=== PATIENT | male | born 1960 | race Caucasian/White ===

== ENCOUNTER 2022-03-12 10:04 | Emergency (ER) | payer BC, SELFPAY ==
[2022-03-12] VITALS (8 sets, daily range): BP systolic 124–133; BP diastolic 81–87; PULSE 65–81; RESP 9–18; O2SAT 95–99
--- NOTE | ~2022-03-12 | XR_ITS ---
EXAMINATION: XR chest 1V portable DATE: 03/12/2022 10:38 INDICATION: Centralized chest pain TECHNIQUE: frontal view of the chest was obtained. COMPARISON: None FINDINGS: The lungs are clear with no focal airspace opacities, pulmonary edema, pleural effusion or pneumothor ax. The cardiomediastinal silhouette is normal. Visualized bones and soft tissues are unremarkable. IMPRESSION: 1. No acute cardiopulmonary disease. Reviewed, dictated and finalized at location A.
--- NOTE | 2022-03-12 10:17 | ECG_ITS ---
Measurements Intervals Counselor Rate: 73 P: 36 LA: 135 QRS: 10 QRSD: 101 T: 34 QT: 352 QTc: 389 Interpretive Statements SINUS RHYTHM INCOMPLETE RIGHT BUNDLE BRANCH BLOCK BORDERLINE ECG Electronically Signed On 03-14-2022 10:41:17 CDT by Tushar Blanchard D.O.
--- NOTE | 2022-03-12 10:33 | ECG_ITS ---
Measurements Intervals [place] Rate: 60 P: 35 IN: 134 QRS: 1 QRSD: 99 T: 30 QT: 375 QTc: 375 Interpretive Statements SINUS RHYTHM BORDERLINE T WAVE ABNORMALITY- INFERIOR LEADS BORDERLINE ECG Electronically Signed On 03-12-2022 15:34:19 CDT by Tushar Blanchard D.O.
[2022-03-12] MEDS: ASPIRIN 81 MG CHEWABLE TABLET 324 MG PO (10:36)
[2022-03-12 10:43] LABS: Basophils Absolute Auto 0.1 K/mm3 (0.0-0.1); Eosinophils Absolute Auto 0.2 K/mm3 (0-0.3); Eosinophils Percent Auto 2.9 % (0-4.4); Hematocrit 44.3 % (42.0-52.0); Hemoglobin 14.6 g/dL (14.0-18.0); Immature Granulocyte Absolute 0.04 K/mm3 (0.00-0.031); Immature Granulocyte Percent A 0.5 % (0-0.5); Lymphocytes Absolute Auto 1.76 K/mm3 (0.9-3.2); Lymphocytes Percent Auto 21.8 % (18.3-44.2); Monocytes Absolute Auto 0.7 K/mm3 (0.1-0.6); Monocytes Percent Auto 8.2 % (2.6-8.5); Neutrophils Absolute Auto 5.3 K/mm3 (1.3-6.7); Neutrophils Percent Auto 65.6 % (45.5-73.1); Platelet Count Result 263 k/mm3 (150-375); Red Blood Count 4.87 M/mm3 (4.6-6.20); Red Cell Distribution Width 13.1 % (11.5-14.5); White Blood Count 8.1 K/mm3 (4.5-10.0)
--- NOTE | 2022-03-12 10:51 | ED.CHESTPAIN ---
HPI - Chest Pain General Chief Complaint: Chest Pain Stated Complaint: chest tightness Time Seen by Provider: 03/12/22 10:24 History of Present Illness HPI narrative: 61-year-old male presents emergency room accompanied by his . He was in his house [facility] when all of a sudden he developed this discomfort in the midportion of his chest. He states he can move from the central portion a little bit over towards the left side. He states he got very scared when this happened. He never had any history of any cardiac abnormalities. He had no radiation of the pain. He had no associated nausea, vomiting, shortness of breath, diaphoresis. He has been a very healthy geraldo and is never having had exertional chest pain or shortness of breath. He is a non-smoker. Related Data Home Medications Medication Instructions Recorded Confirmed No Home Medications 03/12/22 03/12/22 Allergies Allergy/AdvReac Type Severity Reaction Status Date / Time No Known Allergies Allergy Verified 03/12/22 10:22 Review of Systems Review of Systems: CONSTITUTIONAL: Denies fever, chills, or sweats. EYES: Denies visual changes, redness, or discharge. ENT: Denies rhinorrhea, congestion, sore throat, or otalgia. CARDIOVASCULAR: Chest pain as noted in HPI but no palpitations or edema. RESPIRATORY: Denies cough or dyspnea. GASTROINTESTINAL: Denies abdominal pain, nausea, vomiting, or diarrhea. GENITOURINARY: Denies dysuria or hematuria. SKIN: Denies rash or itching. MUSCULOSKELETAL: Denies back pain, joint pain, or myalgia. NEUROLOGIC: Denies headache, numbness, or weakness. PSYCHIATRIC: Denies anxiety or depression. ON LICENSE OF [facility] Past Medical History Medical History No active medical problems Social History Social History Smoking status: Never smoker Exam Narrative: APPEARANCE: Well appearing, no pain or distress, well-nourished. Head normocephalic and atraumatic. EYES: PERRLA/EOMI, conjunctivae very clear. NOSE: Normal with no drainage EARS:TMS clear Donte Linares, with good light reflex. THROAT: Pharynx clear, no exudate. NECK: Supple. No adenopathy, no masses. RESPIRATORY: Airway patent, respirations nonlabored. Clear to auscultation bilaterally, no rales, rhonchi, wheezing. CARDIOVASCULAR: Regular rate and rhythm without murmurs, rubs, or gallops. ABDOMINAL: Soft, nontender, nondistended, no hepatosplenomegaly Musculoskeletal: Moves all extremities. Strength/ROM intact, No edema, No calf tenderness. NEURO: Alert. Cranial nerves II through XII intact. Normal gait. Good coordination. Nonfocal examination. SKIN:: Warm, dry. Normal Color PSYCHIATRIC: Normal affect/mood, normal interaction Course Vital Signs Vital signs: Vital Signs Pulse Rate 77 03/12/22 10:10 Respiratory Rate 14 03/12/22 10:10 Blood Pressure 132/86 03/12/22 10:10 Pulse Oximetry 99 03/12/22 10:10 Oxygen Delivery Room Air 03/12/22 10:10 Pulse Rate 65 03/12/22 12:01 Respiratory Rate 13 03/12/22 12:01 Blood Pressure 129/87 03/12/22 12:01 Pulse Oximetry 95 03/12/22 12:01 Oxygen Delivery Room Air 03/12/22 10:10 MDM - Chest Pain MDM Narrative Medical decision making narrative: EKG shows no injury pattern. Troponin was less than 0.012. Repeated the troponin is also less than 0.012. This was all reviewed with the patient and his . No evidence of any cardiac abnormalities. Patient has not really been taking care of himself is the way he should. Has not had any routine screening such as cholesterols or even a colonoscopy. Talked him about the necessity for these things and his age. Advised him to promptly get a follow-up with a primary care physician and start getting some of these things taken care of. Lab Data Result diagrams: 03/12/22 10:37 03/12/22 10:37 Labs: Lab Results 03/12/22 07/0
[2022-03-12 10:54] LABS: Alanine Aminotransferase 21 U/L (6-50); Albumin Level 4.3 g/dL (3.5-5.1); Alkaline Phosphatase 65 U/L (38-126); Anion Gap 5 mmol/L (8-16); Aspartate Amino Transferase 27 U/L (17-59); Bilirubin,Total 0.4 mg/dL (0.2-1.3); Blood Urea Nitrogen 17 mg/dL (9-20); Carbon Dioxide 30 mmol/L (22-30); Chloride 105 mmol/L (98-107); Estimated CRCL calculation 77 ml/min; Estimated Glomerular Filt Rate > 60; Glucose 105 mg/dL (65-110); Potassium 3.7 mmol/L (3.4-5.0); Sodium 140 mmol/L (137-145)
[2022-03-12 11:05] LABS: Troponin I < 0.012 ng/mL (0.000-0.034)
[2022-03-12 12:37] LABS: Troponin I < 0.012 ng/mL (0.000-0.034)
== END 2022-03-12 13:22 | disposition home or self-care (01) ==
PROVIDERS: Emergency Provider Emergency Medicine
DX: R07.89 Other chest pain (principal); I45.10 Unspecified right bundle-branch block
CPT/HCPCS: 36415; 71045; 80053; 84484; 85025; 93005; 99284; A9270